=== PATIENT | female | born 2000 | race African-American/Black ===

== ENCOUNTER 2024-09-25 04:05 | Emergency (ER) | payer MEDICAID ==
[~2024-09-25] VITALS: Ht 170.2 cm; Wt 98.0 kg
[2024-09-25 04:11] VITALS: TEMP 36.7; O2SAT 100
[2024-09-25 05:41] LABS: CLARITY URINE CLEAR (CLEAR); COLOR URINE YELLOW (YELLOW); GLUCOSE URINE NEGATIVE (NEGATIVE); KETONES URINE NEGATIVE (NEGATIVE); LEUKOCYTE ESTERASE URINE NEGATIVE (NEGATIVE); NITRITE URINE NEGATIVE (NEGATIVE); OCCULT BLOOD URINE 1+ (NEGATIVE); PROTEIN URINE 1+ (NEGATIVE); SPECIFIC GRAVITY URINE 1.025 (1.005-1.030)
[2024-09-25 06:46] VITALS: BP 128/66; PULSE 100; RESP 16; O2SAT 100
[2024-09-25 07:07] LABS: SQUAMOUS EPITHELIAL CELL URINE FEW /lpf (RARE/1+)
[2024-09-25 07:08] LABS: WBC URINE 0-2 /hpf (0-2)
[2024-09-25 07:09] LABS: BACTERIA URINE TRACE
== END 2024-09-25 08:00 | disposition left against medical advice (07) ==
LOC: ER 04:05
DX: N89.8 Other specified noninflammatory disorders of vagina (principal); Z53.21 Procedure and treatment not carried out due to patient leaving prior to being seen by health care provider
CPT/HCPCS: 81003